=== PATIENT | female | born 1950 | race Caucasian/White ===

== ENCOUNTER 2021-09-20 03:02 | Observation (INO) ==
[2021-09-20] MEDS ORDERED: ONDANSETRON 4 MG/2 ML VIAL IV STA (03:31)
[2021-09-20] MEDS ORDERED: MORPHINE 2 MG/1 ML SYRINGE IV STA (03:31)
[2021-09-20 04:34] LABS: PT Patient Result 10.9 SECS (10.5-12.0); Partial Thromboplastin Time 22.6 SECS (23.8-32.1)
[2021-09-20 04:38] LABS: Albumin 2.8 G/DL (3.4-5.0); Bilirubin,Total 0.5 MG/DL (0.20-1.00); Calcium 9.5 MG/DL (8.5-10.1); Osmolality,Calculated 281.8 MOS/KG (273-304); Potassium 3.6 MMOL/L (3.5-5.1); Total Protein 6.9 G/DL (6.4-8.2)
[2021-09-20 05:01] LABS: Basophils % 0.3 % (0.0-0.8); Eosinophils # 0.1 10*3/uL (0.0-0.87); Eosinophils % 0.9 % (0.00-10.9); Hematocrit 33.7 VOL% (35.7-47.0); Hemoglobin 9.2 GM/DL (12.0-16.0); Immature Granulocytes % 0.8 %; Immature Granulocytes Absolute 0.08 #; Lymphocytes # 1.1 10*3/uL (1.4-4.0); Lymphocytes % 11.9 % (21.3-54.2); Mean Corpuscular HGB Conc 27.3 GM/DL (32-36); Mean Corpuscular Volume 74.4 FL (87-102); Mean Platelet Volume 10.3 FL (9.6-12.0); Neutrophils % 79.1 % (38.7-73.9); Platelet Count 462 T/CUMM (130-400); Red Blood Count 4.53 MC/CUMM (3.8-5.5); Red Cell Distribution Width 17.2 % (9.3-17.3); White Blood Count 9.6 T/CUMM (4-12)
[2021-09-20 05:17] LABS: Hypochromia 1+; Microcytosis 1+; Ovalocytes Few; Platelet Estimate Increased
[2021-09-20] MEDS ORDERED: ONDANSETRON 4 MG/2 ML VIAL IV PRN (05:46)
[2021-09-20] MEDS: SODIUM CHLORIDE 0.9% 1,000 ML IV SCH ×3 (06:23→23:03)
[2021-09-20] MEDS: PANTOPRAZOLE 40 MG TABLET PO SCH (08:44)
[2021-09-20] MEDS: DOCUSATE SODIUM 100 MG CAPSULE PO SCH ×2 (08:44→21:10)
[2021-09-20] MEDS: ACETAMINOPHEN 325 MG TABLET PO PRN (19:38)
[2021-09-21] MEDS: SODIUM CHLORIDE 0.9% 1,000 ML IV SCH ×4 (03:06→23:55)
[2021-09-21] MEDS ORDERED: PANTOPRAZOLE 40 MG TABLET PO SCH (09:00)
[2021-09-21] MEDS ORDERED: MINERAL OIL ENEMA 133 ML BOTTLE RECTAL ONE (09:00)
[2021-09-21] MEDS: PANTOPRAZOLE 40 MG TABLET PO SCH (09:50)
[2021-09-21] MEDS: LOSARTAN 50 MG TABLET PO SCH (09:50)
[2021-09-21] MEDS: DOCUSATE SODIUM 100 MG CAPSULE PO SCH ×2 (09:50→20:27)
[2021-09-21] MEDS ORDERED: LACTULOSE 20 GM/30 ML UDCUP PO SCH (10:00)
[2021-09-21] MEDS: NON-FORMULARY MEDICATION (Fluticasone-Umeclidin-Vilanter [Trelegy Ellipta] 100-62.5-25 mcg INH SCH (10:09)
[2021-09-21] MEDS ORDERED: POLYETHYLENE GLYCOL POWDER 255 GM BOTTLE PO ONE ×3 (13:00→18:00)
[2021-09-21] MEDS: ACETAMINOPHEN 325 MG TABLET PO PRN (20:27)
[2021-09-22] MEDS ORDERED: POLYETHYLENE GLYCOL POWDER 255 GM BOTTLE PO ONE ×2 (05:00→09:00)
[2021-09-22 06:12] LABS: Basophils % 0.3 % (0.0-0.8); Eosinophils # 0.1 10*3/uL (0.0-0.87); Hemoglobin 7.8 GM/DL (12.0-16.0); Immature Granulocytes % 0.4 %; Immature Granulocytes Absolute 0.03 #; Lymphocytes # 1.3 10*3/uL (1.4-4.0); Lymphocytes % 18.5 % (21.3-54.2); Mean Corpuscular HGB Conc 26.6 GM/DL (32-36); Mean Corpuscular Volume 75.9 FL (87-102); Mean Platelet Volume 10.4 FL (9.6-12.0); Monocytes % 5.9 % (1.7-12.7); Neutrophils % 72.9 % (38.7-73.9); Platelet Count 359 T/CUMM (130-400); Red Blood Count 3.86 MC/CUMM (3.8-5.5); Red Cell Distribution Width 17.2 % (9.3-17.3); White Blood Count 6.9 T/CUMM (4-12)
[2021-09-22 06:15] LABS: Hematocrit 29.3 VOL% (35.7-47.0)
[2021-09-22 06:18] LABS: Hypochromia 1+; Microcytosis 1+
[2021-09-22 06:19] LABS: Elliptocytes Few; Platelet Estimate Normal
[2021-09-22] MEDS: SODIUM CHLORIDE 0.9% 1,000 ML IV SCH ×2 (06:27→22:08)
[2021-09-22] MEDS ORDERED: LACTATED RINGERS 1,000 ML IV SCH (08:00)
[2021-09-22] MEDS: LOSARTAN 50 MG TABLET PO SCH (10:13)
[2021-09-22] MEDS: DOCUSATE SODIUM 100 MG CAPSULE PO SCH ×2 (10:13→22:04)
[2021-09-22] MEDS: PANTOPRAZOLE 40 MG TABLET PO SCH (10:14)
[2021-09-22] MEDS: NON-FORMULARY MEDICATION (Fluticasone-Umeclidin-Vilanter [Trelegy Ellipta] 100-62.5-25 mcg INH SCH (10:15)
[2021-09-22] MEDS: ACETAMINOPHEN 325 MG TABLET PO PRN (22:05)
[2021-09-23] MEDS ORDERED: LACTATED RINGERS 1,000 ML IV SCH (08:00)
[2021-09-23 08:48] LABS: Hematocrit 31.4 VOL% (35.7-47.0); Hemoglobin 8.4 GM/DL (12.0-16.0)
[2021-09-23] MEDS: NON-FORMULARY MEDICATION (Fluticasone-Umeclidin-Vilanter [Trelegy Ellipta] 100-62.5-25 mcg INH SCH (11:05)
[2021-09-23] MEDS: DOCUSATE SODIUM 100 MG CAPSULE PO SCH ×2 (11:29→20:51)
[2021-09-23] MEDS: PANTOPRAZOLE 40 MG TABLET PO SCH (11:29)
[2021-09-23] MEDS ORDERED: POLYETHYLENE GLYCOL POWDER 255 GM BOTTLE PO ONE (15:05)
[2021-09-23] MEDS: LOSARTAN 50 MG TABLET PO SCH (18:43)
[2021-09-23] MEDS: SODIUM CHLORIDE 0.9% 1,000 ML IV SCH (18:52)
[2021-09-24] MEDS: SODIUM CHLORIDE 0.9% 1,000 ML IV SCH ×5 (03:51→14:43)
[2021-09-24] MEDS ORDERED: LACTATED RINGERS 1,000 ML IV SCH (08:00)
[2021-09-24] MEDS: DOCUSATE SODIUM 100 MG CAPSULE PO SCH (10:18)
[2021-09-24] MEDS: PANTOPRAZOLE 40 MG TABLET PO SCH (10:18)
[2021-09-24] MEDS: LOSARTAN 50 MG TABLET PO SCH (10:18)
[2021-09-24] MEDS: NON-FORMULARY MEDICATION (Fluticasone-Umeclidin-Vilanter [Trelegy Ellipta] 100-62.5-25 mcg INH SCH (10:18)
[2021-09-24 15:55] VITALS: BP 136/66
== END 2021-09-24 16:35 | disposition home or self-care (01) ==
LOC: N.EDINP 03:02 → N.ED 03:02 → N.EDINP 10:12 → N.3E 10:53
PROVIDERS: ADMIT Family Medicine; ATTEND Family Medicine